=== PATIENT | male | born 1975 | race Two or more races ===

== ENCOUNTER 2017-05-07 10:06 | Inpatient (IN) | payer BC, MEDICAID ==
--- NOTE | 2017-05-07 10:54 | EDM.PDOC ---
ED HPI GENERAL MEDICAL PROBLEM - General Chief Complaint: Chest Pain Stated Complaint: CHEST PAIN Time Seen by Provider: 05/07/17 10:10 Source of Information: Reports: Patient History Limitations: Reports: No Limitations - History of Present Illness INITIAL COMMENTS - FREE TEXT/NARRATIVE: c/o CP x 2w has been using THC and meth, has h/o CHF and MIs in past L upper chest, dull, minimal no change with deep breath or ambulation no f/c/d, no n/v, no sob/[place] pt states he was dx with HF 5-6y ago in [place], has not seen a physician since then, takes an ASA daily as his only med From [facility], 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[employer], 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 working 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, lives alone, has a 16 yo son living with his aunt and uncle in [facility] Treatments CAR 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: Reports: Oxygen Chest Pain Score (Numeric/FACES): 2 - Related Data Allergies Allergy/AdvReac Type Severity Reaction Status Date / Time No Known Allergies Allergy Verified 05/07/17 10:36 Past Medical History HEENT History: Reports: Other (See Below) Other HEENT History: glasses Cardiovascular History: Reports: Heart Failure, [place] Respiratory History: Reports: SOB Gastrointestinal History: Reports: GERD, Other (See Below) Other Gastrointestinal History: hernia when he was little Dermatologic History: Reports: Other (See Below) Other Dermatologic History: pinpoint rash currently - Infectious Disease History Infectious Disease History: Reports: Chicken Pox - Past Surgical History HEENT Surgical History: Reports: None Cardiovascular Surgical History: Reports: None Respiratory Surgical History: Reports: None GI Surgical History: Reports: None Dermatological Surgical History: Reports: None Social & Family History - Family History Family Medical History: Noncontributory - Tobacco Use Smoking Status *Q: Current Every Day Smoker Years of Tobacco use: 30 Packs/Tins Daily: 1 Used Tobacco, but Quit: No Second Hand Smoke Exposure: No - Caffeine Use Caffeine Use: Reports: Coffee, Soda - Recreational Drug Use Recreational Drug Use: Yes Drug Use in Last 12 Months: Yes Recreational Drug Type: Reports: Marijuana/Hashish, Methamphetamine Recreational Drug Use Frequency: Daily ED ROS GENERAL - Review of Systems Review Of Systems: See Below Constitutional: Reports: No Symptoms HEENT: Reports: No Symptoms Respiratory: Reports: No Symptoms Cardiovascular: Reports: Chest Pain. Denies: Dyspnea on Exertion Endocrine: Reports: No Symptoms GI/Abdominal: Reports: No Symptoms : Reports: No Symptoms Musculoskeletal: Reports: No Symptoms Skin: Reports: No Symptoms Neurological: Reports: No Symptoms Psychiatric: Reports: No Symptoms Hematologic/Lymphatic: Reports: No Symptoms Immunologic: Reports: No Symptoms ED EXAM, GENERAL - Physical Exam Exam: See Below Exam Limited By: No Limitations General Appearance: Alert, WD/WN, No Apparent Distress Ears: Normal External Exam Nose: Normal Inspection, Normal Mucosa, No Blood Throat/Mouth: Normal Inspection, Normal Lips, Normal Teeth, Normal Voice, No Airway Compromise Head: Atraumatic, Normocephalic Neck: Normal Inspection, Supple, Non-Tender, Full Range of Motion. No: Lymphadenopathy (R), Lymphadenopathy (L) Respiratory/Chest: No Respiratory Distress, Lungs Clear, Normal Breath Sounds, No Accessory Muscle Use, Chest Non-Tender Cardiovascular: Regular Rate, Rhythm, No Edema, No Gallop, No JVD, No Rub, Other (2/6 ZARA at LSB) GI/Abdominal: Soft, Non-Tender, No Distention Back Exam: Normal Inspection, Full Range of Motion, NT Extremities: Normal Inspection, Normal Range of Motion, Non-Tender, No Pedal Edema Neurological: Alert, Oriented, CN II-XII Intact, Normal Cognition, No Motor/ Sensory Deficits Psychiatric: Normal Affect, Normal Mood Skin Exam: Warm, Dry, Intact, Normal Color, No Rash Lymphatic: No Adenopathy Course - Vital Signs Last Recorded V/S: Last Vital Signs Temp 36.1 C 05/07/17 12:20 Pulse 93 05/07/17 13:26 Resp 27 H 05/07/17 13:26 BP 132/89 05/07/17 13:26 Pulse Ox 100 05/07/17 13:26 - Orders/Labs/Meds Orders: Active Orders 24 hr Category Date Time Status Ang Chest [CT] Stat Exams 05/07/17 12:34 Taken Chest 1V Frontal [CR] Stat Exams 05/07/17 12:05 Taken EKG 12 Lead [EK] Routine Ther 05/07/17 10:39 Ordered Labs: Laboratory Tests 05/07/17 05/07/17 05/07/17 Range/Units 10:53 10:53 10:53 WBC 9.4 (4.5-12.0) X10-3/uL RBC 5.30 (4.30-5.75) x10(6)uL Hgb 14.8 (11.5-15.5) g/dL Hct 45.7 (30.0-51.3) % MCV 86.2 (80-96) fL MCH 28.0 (27.7-33.6) pg MCHC 32.4 (32.2-35.4) g/dL RDW 16.0 H (11.5-15.5) % Plt Count 258 (125-369) X10(3)uL MPV 9.9 (7.4-10.4) fL Neut % (Auto) 62.8 (46-82) % Lymph % (Auto) 25.7 (13-37) % [place] % (Auto) 8.8 (4-12) % Eos % (Auto) 2 (1.0-5.0) % Baso % (Auto) 1 (0-2) % Neut # (Auto) 6.0 (1.6-8.3) # Lymph # (Auto) 2.4 (0.6-5.0) # [place] # (Auto) 0.8 (0.0-1.3) # Eos # (Auto) 0.1 (0.0-0.8) # Baso # (Auto) 0.1 (0.0-0.2) # PT 15.7 H (8.7-11.1) INR 1.54 H (0.89-1.13) D-Dimer, Quantitative 1750 H (100-400) ng/mL Sodium (135-145) mmol/L Potassium (3.5-5.3) mmol/L Chloride (100-110) mmol/L Carbon Dioxide (21-32) mmol/L BUN (7-18) mg/dL Creatinine (0.70-1.30) mg/dL Est Cr Clr Drug Dosing mL/min Estimated GFR (MDRD) (>60) BUN/Creatinine Ratio (9-20) Glucose (80-116) mg/dL Calcium (8.6-10.2) mg/dL Total Bilirubin (0.1-1.3) mg/dL AST (5-25) IU/L ALT (12-36) U/L Alkaline Phosphatase (56-112) IU/L Troponin I (<0.017-0.056) ng/mL C-Reactive Protein (0.5-0.9) mg/dL NT-Pro-B Natriuret Pep (<=125) pg/mL Total Protein (6.0-8.0) g/dL Albumin (3.5-5.2) g/dL Globulin g/dL Albumin/Globulin Ratio 05/07/17 05/07/17 Range/Units 10:53 10:53 WBC (4.5-12.0) X10-3/uL RBC (4.30-5.75) x10(6)uL Hgb (11.5-15.5) g/dL Hct (30.0-51.3) % MCV (80-96) fL MCH (27.7-33.6) pg MCHC (32.2-35.4) g/dL RDW (11.5-15.5) % Plt Count (125-369) X10(3)uL MPV (7.4-10.4) fL Neut % (Auto) (46-82) % Lymph % (Auto) (13-37) % [place] % (Auto) (4-12) % Eos % (Auto) (1.0-5.0) % Baso % (Auto) (0-2) % Neut # (Auto) (1.6-8.3) # Lymph # (Auto) (0.6-5.0) # [place] # (Auto) (0.0-1.3) # Eos # (Auto) (0.0-0.8) # Baso # (Auto) (0.0-0.2) # PT (8.7-11.1) INR (0.89-1.13) D-Dimer, Quantitative (100-400) ng/mL Sodium 140 (135-145) mmol/L Potassium 4.3 (3.5-5.3) mmol/L Chloride 104 (100-110) mmol/L Carbon Dioxide 23 (21-32) mmol/L BUN 20 H (7-18) mg/dL Creatinine 1.4 H (0.70-1.30) mg/dL Est Cr Clr Drug Dosing 73.21 mL/min Estimated GFR (MDRD) 56 L (>60) BUN/Creatinine Ratio 14.3 (9-20) Glucose 127 H (80-116) mg/dL Calcium 8.4 L (8.6-10.2) mg/dL Total Bilirubin 1.6 H (0.1-1.3) mg/dL AST 59 H (5-25) IU/L ALT 146 H (12-36) U/L Alkaline Phosphatase 94 (56-112) IU/L Troponin I 0.035 (<0.017-0.056) ng/mL C-Reactive Protein 1.3 H (0.5-0.9) mg/dL NT-Pro-B Natriuret Pep 3744 H* (<=125) pg/mL Total Protein 6.8 (6.0-8.0) g/dL Albumin 3.2 L (3.5-5.2) g/dL Globulin 3.6 g/dL Albumin/Globulin Ratio 0.9 Meds: Medications Discontinued Medications Generic Name Dose Route Start Last Admin Trade Name Freq PRN Reason Stop Dose Admin Aspirin 324 mg 05/07/17 12:36 05/07/17 12:45 Aspirin PO 05/07/17 12:37 324 mg ONETIME ONE Administration Iopamidol 100 ml 05/07/17 12:50 05/07/17 13:29 Isovue-370 (76%) IV 05/07/17 12:51 100 ml ONETIME ONE Administration Nitroglycerin 0.4 mg 05/07/17 12:04 05/07/17 12:18 Nitrostat SL 05/07/17 12:05 0.4 mg ONETIME ONE Administration Nitroglycerin 1 gm 05/07/17 12:04 05/07/17 12:10 Nitro-Bid 2% TOP 05/07/17 12:05 1 gm ONETIME ONE Administration - Re-Assessments/Exams Free Text/Narrative Re-Assessment/Exam: 05/07/17 11:58 EKG with PRWP, LAD -19, NSST changes, no acute ischemia t bili 1.6, AST/ALT 59/146, INR 1.54 DDimer 1750 BNP 3744 05/07/17 12:08 pt with inc'd sob, sitting up in bed, diaphoretic, lungs remain clear, no wheeze , slight hollow upper BS with good AE will give NTG SL 0.4 mg and 1" topical, pCxR ordered Free Text/Narrative Re-Assessment/Exam: 05/07/17 14:23 chest CTA shows PEs, pt accepted in admission by Dr Kelley Major Departure - Departure Time of Disposition: 14:24 Disposition: Admitted As Inpatient 66 Reason for Transfer *Q: Other Condition: Good Clinical Impression: Pulmonary embolism, Heart failure, Liver failure, Renal failure, Marijuana abuse, Methamphetamine abuse - My Orders Last 24 Hours: My Active Orders 05/07/17 10:39 EKG 12 Lead [EK] Routine 05/07/17 12:05 Chest 1V Frontal [CR] Stat 05/07/17 12:34 Ang Chest [CT] Stat - Assessment/Plan Last 24 Hours: My Active Orders 05/07/17 10:39 EKG 12 Lead [EK] Routine 05/07/17 12:05 Chest 1V Frontal [CR] Stat 05/07/17 12:34 Ang Chest [CT] Stat
[2017-05-07] MEDS ORDERED: Nitroglycerin 0.4 MG Tab.SL SL ONE (12:04)
[2017-05-07] MEDS ORDERED: Nitroglycerin 2% Oint 1 GM UD Packet TOP ONE (12:04)
[2017-05-07] MEDS ORDERED: Aspirin 81 MG Tab.Chew PO ONE (12:36)
[2017-05-07] MEDS ORDERED: Iopamidol 755 Mg/ML 100 ML Bottle IV ONE (12:50)
[2017-05-07] MEDS ORDERED: Acetaminophen 325 MG Tab PO PRN (14:18)
[2017-05-07] MEDS ORDERED: Promethazine 25 MG Tab PO PRN (14:18)
[2017-05-07] MEDS ORDERED: Temazepam 7.5 MG Cap PO PRN (14:18)
[2017-05-07] MEDS: Lactated Ringers 1,000 ML IV SCH (14:51)
[2017-05-07] MEDS: Enoxaparin 100 MG/1 ML Syringe SUBCUT SCH (14:53)
--- NOTE | 2017-05-07 14:59 | CR ---
INDICATION: Chest pain. CHEST: An AP portable upright view of the chest 05/07/2017 - no comparisons. The heart is enlarged. The aorta is slightly tortuous. Overlying EKG leads are noted. An active infiltrate or effusion was not identified. IMPRESSION: 1. No acute process. 2. ASHD with cardiomegaly. MTDD
--- NOTE | 2017-05-07 15:12 | CT ---
INDICATION: Short of breath, increased D-dimer, question PE. COMPUTERIZED TOMOGRAPHY ANGIOGRAPHY OF THE CHEST FOR PULMONARY ARTERIES: Spiral 1.25-mm axial images were obtained through the chest with 85 mL Isovue- 370 at 3 mL per second, and then for a second attempt at visualizing the pulmonary arteries, 75 mL were injected at 3 mL per second additionally. A second run was therefore obtained. Sagittal and coronal reconstructions were obtained for both. Comparison chest x-ray is noted. No comparison CTs are available. This examination was obtained 05/07/2017. Total Exam DLP = 912.33 plus 825.08 mGy-cm for the two runs. There is suggestion of small pulmonary emboli in second order and third order pulmonary arteries, extending into the right lower lobe. These apparent emboli do not appear to be obstructive - relatively minimal in size. There is noted a moderate sized pleural effusion on the right, which may be related to the pulmonary embolus. This should be correlated clinically. No definite active infiltrate was identified. There is, however, question of slightly prominent interstitium which could be present with interstitial lung edema and should be correlated clinically in this patient with prominent heart - slightly enlarged heart. Multiple small gallstones are present. If cholecystitis is suspected clinically , gallbladder ultrasound may be helpful for further evaluation. No mediastinal masses were identified. Mediastinal lymphadenopathy appears to be present to a mild degree, which is nonspecific. Aortic calcifications are noted to a minimal degree. There is suggestion of some minimal areas of subsegmental atelectasis in the upper lobes bilaterally. No gross consolidating pneumonia was identified. IMPRESSION: 1. Suggestion of minimal pulmonary emboli of the arteries going to the right lower lobe. 2. Moderately large right pleural effusion, etiology indeterminate - question on the basis of #1. 3. Cholelithiasis - gallbladder ultrasound may be helpful if acute cholecystitis is suspected clinically. 4. ASHD with question of the possibility of CHF with minimal interstitial lung edema. 5. Suggestion of some minimal subsegmental atelectasis in the upper lobes bilaterally. MTDD
--- NOTE | 2017-05-07 15:59 | PCM.HP ---
H&P History of Present Illness - General Date of Service: 05/07/17 Admit Problem/Dx: Admission Diagnosis/Problem Admission Diagnosis/Problem PE, Pulmonary embolism Source of Information: Patient, Old Records, Provider - History of Present Illness Initial Comments - Free Text/Narative: Patient is a 42-year-old female with a history of some type of cardiac abnormality for which he was advised to have open heart surgery, possibly valve replacement. He has a known history of congestive heart failure, diagnosed 5-6 years ago, no follow-up since. Has a history of drug abuse with methamphetamines but is currently clean and sober. 2 weeks ago he started to develop worsening shortness of breath. He normally cannot walk more than a block or 2 without having to stop and catch his breath, but it was getting worse and he felt pain across the anterior chest as well. Little bit of upper abdominal discomfort as well. He's had episodes like this in the past but finally decided since he has insurance he would come in and get evaluated. He was seen in the emergency room with a slightly elevated troponin, although still in normal limits, and CT angiogram showed evidence of PE. I was asked to admit the patient for further evaluation and treatment. Some diaphoresis, no dizziness, no nausea or vomiting, no diarrhea. No fevers or chills, no night sweats. No unexplained weight loss. Past medical history: The patient does not doctor. 5-6 years ago he was in [place] and was using methamphetamine at the time. He ended up in the hospital they told him he had a slight heart attack, severe congestive heart failure secondary to bad valve, and recommended open heart surgery. He declined and came back to [place]. He has not been into the doctor since. Social history: The patient is a nonsmoker but does smoke marijuana. He uses it about once a week. Denies ETOH. Denies IVDU. 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 Was about 2 months ago. He lives alone. He has an apartment in [place]. Family history: The patient's mother is still living with diabetes mellitus. The patient's father is living with diabetes mellitus. The patient has one son who is in good health. This far as he knows there is been some type of heart problems in the family but "they don't talk about it" and as far she knows no one else has had open-heart surgery or bypass grafting. Chest Pain Score (Numeric/FACES): 2 - Related Data Allergies/Adverse Reactions: Allergies Allergy/AdvReac Type Severity Reaction Status Date / Time No Known Allergies Allergy Verified 05/07/17 10:36 Past Medical History HEENT History: Reports: Other (See Below) Other HEENT History: glasses Cardiovascular History: Reports: Heart Failure, [place] Respiratory History: Reports: SOB Gastrointestinal History: Reports: GERD, Other (See Below) Other Gastrointestinal History: hernia when he was little Dermatologic History: Reports: Other (See Below) Other Dermatologic History: pinpoint rash currently - Infectious Disease History Infectious Disease History: Reports: Chicken Pox - Past Surgical History HEENT Surgical History: Reports: None Cardiovascular Surgical History: Reports: None Respiratory Surgical History: Reports: None GI Surgical History: Reports: None Dermatological Surgical History: Reports: None Social & Family History - Family History Family Medical History: Noncontributory - Tobacco Use Smoking Status *Q: Current Every Day Smoker Years of Tobacco use: 30 Packs/Tins Daily: 1 Used Tobacco, but Quit: No Second Hand Smoke Exposure: No - Caffeine Use Caffeine Use: Reports: Coffee, Soda - Recreational Drug Use Recreational Drug Use: Yes Drug Use in Last 12 Months: Yes Recreational Drug Type: Reports: Marijuana/Hashish, Methamphetamine Recreational Drug Use Frequency: Daily H&P Review of Systems - Review of Systems: Review Of Systems: See Below Free Text/Narrative: Currently pain free. General: Reports: No Symptoms HEENT: Reports: No Symptoms Pulmonary: Reports: Shortness of Breath, Pleuritic Chest Pain, Cough Cardiovascular: Reports: Chest Pain, Dyspnea on Exertion Gastrointestinal: Reports: Abdominal Pain Genitourinary: Reports: No Symptoms Musculoskeletal: Reports: No Symptoms Skin: Reports: No Symptoms Psychiatric: Reports: No Symptoms Neurological: Reports: No Symptoms Hematologic/Lymphatic: Reports: No Symptoms Immunologic: Reports: No Symptoms Exam - Exam Exam: See Below - Vital Signs Vital Signs: Last Vital Signs Temp 36.1 C 05/07/17 12:20 Pulse 93 05/07/17 13:26 Resp 27 H 05/07/17 13:26 BP 132/89 05/07/17 13:26 Pulse Ox 100 05/07/17 13:26 Weight: 94.529 kg - Exam Quality Assessment: Supplemental Oxygen General: Alert, Oriented, Cooperative HEENT: PERRLA, Mucosa Moist & [place], Posterior Pharynx Clear, TMs Clear Neck: Supple, Trachea Midline Lungs: Crackles (fine crackles bilaterally at the bases.) Cardiovascular: Regular Rate, Regular Rhythm, Systolic Murmur (Systolic ejection murmur 3 out of 6.) GI/Abdominal Exam: Normal Bowel Sounds, Soft, Non-Tender, No Distention, No Mass Back Exam: Normal Inspection (He does have a rash, see below.), Full Range of Motion Extremities: Normal Inspection, Normal Range of Motion (Small round scars scattered across the upper and lower extremities.), No Pedal Edema Skin: Rash (On the back and the right lateral side the patient has a slightly raised erythematous sandpaper rash. He says this has been present for weeks. Not itchy.) Psychiatric: Alert, Normal Affect, Normal Mood, Anxious - Patient Data Lab Results Last 24 hrs: Laboratory Results - last 24 hr 05/07/17 05/07/17 Range/Units 12:51 12:51 Urine Color Yellow (YELLOW) Urine Appearance Clear (CLEAR) Urine pH 5.0 (5.0-6.5) Ur Specific [place] 1.020 (1.010-1.025) Urine Protein Negative (NEGATIVE) mg/dL Urine Glucose (UA) Normal (NEGATIVE) mg/dL Urine Ketones Negative (NEGATIVE) mg/dL Urine Occult Blood Negative (NEGATIVE) Urine Nitrite Negative (NEGATIVE) Urine Bilirubin Small H (NEGATIVE) Urine Urobilinogen 1 H (NEGATIVE) mg/dL Ur Leukocyte Esterase Negative (NEGATIVE) Urine RBC 0-5 (0) Urine WBC Not seen (0) Urine Bacteria Rare H (NS) Urine Opiates Screen Negative (NEGATIVE) Ur Oxycodone Screen Negative (NEGATIVE) Ur Propoxyphene Screen Negative (NEGATIVE) Ur Barbituates Screen Negative (NEGATIVE) Ur Tricyclics Screen Negative (NEGATIVE) Ur Phencyclidine Scrn Negative (NEGATIVE) Ur Amphetamine Screen Negative (NEGATIVE) Urine MDMA Screen Negative (NEGATIVE) U Benzodiazepines Scrn Negative (NEGATIVE) U Cocaine Metab Screen Negative (NEGATIVE) U Marijuana (THC) Screen Positive H (NEGATIVE) Result Diagrams: 05/07/17 10:53 05/07/17 10:53 Imaging Impressions Last 24 hrs: Chest x-ray showed cardiomegaly otherwise negative. CTA which required 2 runs of dye because of poor timing on the first attempt, showed small pulmonary emboli in the second and third order pulmonary arteries extending into the right lower lobe. There is a moderate right sided pleural effusion question of slightly prominent interstitium, multiple small gallstones present, mediastinal lymphadenopathy to a mild degree. EKG INTERPRETATION EKG Date: 05/07/17 (EKG shows a sinus tachycardia, Q waves in 2,3 and aVF with mild intraventricular conduction delay. The patient has no ST depression or elevation, no T-wave inversion. No prior for comparison.) *Q Meaningful Use (ADM) - VTE *Q VTE Criteria *Q: - VTE Risk Assess *Q Other Thrombophilia Type: current PE - Stroke *Q Stroke Criteria *Q: - AMI *Q AMI Criteria *Q: - Problem List (1) Pulmonary embolism SNOMED Code(s): 02380690 ICD Code: I26.99 - OTHER PULMONARY EMBOLISM WITHOUT ACUTE COR PULMONALE Status: Acute Current Visit: Yes Problem Details: Patient will be admitted to the ICU. He'll be fully anticoagulated. No provoked or inciting factors as the patient has had no long car trips, no periods of bed rest, no trauma. Given the patient's known valvular disease and history of drug use, septic emboli are in the differential but the patient denies any IV drug use and notes only methamphetamine abuse. He has no symptoms of sepsis or infectious endocarditis. However we'll have a low threshold for transfer. (2) Congestive heart failure (CHF) SNOMED Code(s): 83609831 ICD Code: I50.9 - HEART FAILURE, UNSPECIFIED Status: Acute Current Visit : Yes Problem Details: Unknown if systolic or diastolic, question of valve failure. We'll get echocardiogram tomorrow to further assess function and valves. (3) History of drug abuse SNOMED Code(s): 845181677 ICD Code: Z87.898 - PERSONAL HISTORY OF OTHER SPECIFIED CONDITIONS Status: Acute Current Visit: Yes Problem Details: Patient denies any active methamphetamine use. Last use about 2 months ago. He does use marijuana on a weekly basis. Denies alcohol use. Monitor for signs of withdrawal. At discharge , outpatient assistance in maintaining sobriety should be offered. (4) CKD (chronic kidney disease) SNOMED Code(s): 085352015 ICD Code: N18.9 - CHRONIC KIDNEY DISEASE, UNSPECIFIED Status: Acute Current Visit: Yes Problem Details: Unknown if acute or chronic, I'm concerned about the dye load that the patient has received. We'll do gentle fluids at 75 mL an hour normal saline for 2 L over the next 24 hours. If he begins to develop signs of fluid overload, will diurese. (5) Marijuana abuse SNOMED Code(s): 75059941 ICD Code: F12.10 - CANNABIS ABUSE, UNCOMPLICATED Status: Acute Current Visit: Yes Problem Details: Current, advised cessation. (6) Elevated troponin SNOMED Code(s): 923544455, 972721410 ICD Code: R74.8 - ABNORMAL LEVELS OF OTHER SERUM ENZYMES Status: Acute Current Visit: Yes Problem Details: With elevated creatinine and PE, this could potentially be just a troponin leak but with the patient's history of possible CT will follow and if it increases significantly, we'll transfer the patient for further evaluation with cardiology. (7) Elevated INR SNOMED Code(s): 896825121 ICD Code: R79.1 - ABNORMAL COAGULATION PROFILE Status: Acute Current Visit: Yes Problem Details: An elevated INR in a patient with no history of anticoagulation is suggestive of liver failure. We'll monitor. Given patient's full anticoagulation, at this point he is at increased risk for bleeding so monitor closely for signs of blood loss. With elevated LFTs and bili, could be passive congestion but will get US of abdomen and check hepatitis labs, as well as HIV. Problem List Initiated/Reviewed/Updated: Yes Orders Last 24hrs: Active Orders 24 hr Category Date Time Status Patient Status [ADT] Routine ADT 05/07/17 14:18 Active Bedrest Bedside Commode [RC] ASDIRECTED Care 05/07/17 14:18 Active Cardiac Monitoring [RC] CONTINUOUS Care 05/07/17 14:19 Active Height and Weight [RC] DAILY Care 05/07/17 14:18 Active Intake and Output [RC] QSHIFT Care 05/07/17 14:19 Active Notify Provider Vital Signs [RC] ASDIRECTED Care 05/07/17 14:20 Active Oxygen Therapy [RC] PRN Care 05/07/17 14:18 Active Pulse Oximetry [RC] CONTINUOUS Care 05/07/17 14:20 Active Up to Chair [RC] ASDIRECTED Care 05/07/17 14:18 Active VTE/DVT Education [RC] Per Unit Routine Care 05/07/17 14:18 Active Vital Signs [RC] Q4H Care 05/07/17 14:18 Active Consult to Insurance Account Representative [CONS] Routine Cons 05/07/17 14:18 Active Clear Liquid Diet [DIET] Diet 05/07/17 Breakfast Active Echo Comp wo Cont [US] Routine Exams 05/07/17 14:27 Ordered CBC WITH AUTO DIFF [HEME] AM Lab 05/08/17 05:11 Ordered COMPREHENSIVE METABOLIC PN,CMP [CHEM] AM Lab 05/08/17 05:11 Ordered TROPONIN I [CHEM] Routine Lab 05/07/17 18:00 Ordered Acetaminophen [Tylenol] Med 05/07/17 14:18 Active 650 mg PO Q4H PRN Enoxaparin [Lovenox] Med 05/07/17 14:30 Active 100 mg SUBCUT Q12H Lactated Ringers [Ringers, Lactated] 1,000 ml Med 05/07/17 14:30 Active IV ASDIRECTED Promethazine [Phenergan] Med 05/07/17 14:18 Active 25 mg PO Q6H PRN Temazepam [Restoril] Med 05/07/17 14:18 Active 7.5 mg PO BEDTIME PRN Resuscitation Status Routine Resus Stat 05/07/17 14:18 Ordered Medication Orders Acetaminophen (Tylenol) 650 mg PO Q4H PRN PRN Reason: Pain (Mild 1-3)/fever Enoxaparin Sodium (Lovenox) 100 mg SUBCUT Q12H [facility] Last Admin: 05/07/17 14:53 Dose: 100 mg Lactated Ringer's (Ringers, Lactated) 1,000 mls @ 75 mls/hr IV ASDIRECTED MEAGHAN Stop: 05/08/17 14:31 Last Admin: 05/07/17 14:51 Dose: 75 mls/hr Promethazine HCl (Phenergan) 25 mg PO Q6H PRN PRN Reason: nausea, able to take PO Temazepam (Restoril) 7.5 mg PO BEDTIME PRN PRN Reason: Sleep Assessment/Plan Comment:: CODE STATUS discussed with the patient. He is a full code.
[2017-05-07] MEDS ORDERED: Furosemide 40 MG/4 ML VIAL IVPUSH ONE (22:49)
[2017-05-08] MEDS: Enoxaparin 100 MG/1 ML Syringe SUBCUT SCH (02:01)
[2017-05-08] MEDS: Lactated Ringers 1,000 ML IV SCH (04:09)
--- NOTE | 2017-05-08 10:37 | US ---
INDICATION: Elevated liver enzymes. ULTRASOUND ABDOMEN COMPLETE: Multiple ultrasonic images were obtained 2017 - no comparisons were available. The IVC was phasic. The abdominal aorta was normal in caliber, measuring a maximum of 1.5 cm distally. The gallbladder was enlarged, measuring 10.3 x 3.3 x 3.7 cm, with multiple calculi of relatively small size present within it. There was a negative ultrasonic Contreras sign and no pericholecystic fluid was seen. The wall did not appear to be grossly thickened. Findings should be correlated clinically as to the possibility of acute cholecystitis. Hepatobiliary imaging may be helpful in that regard with nuclear medicine. The common bile duct appeared normal in caliber at approximately 2.5 mm. The liver had a normal appearance. The pancreas was not ideally visualized, but appeared grossly normal. The spleen appeared normal, measuring 8.5 x 4.9 cm. The right kidney appeared normal, measuring 11.5 x 4 x 5.9 cm. The left kidney appeared normal, measuring 10.3 x 5.6 x 5.4 cm. No organomegaly or mass lesions or free fluid collections were otherwise identified. IMPRESSION: Slightly prominent size of the gallbladder may be on the basis of NPO status, but should be correlated clinically. There are multiple calculi in the gallbladder, but no other findings to suggest acute cholecystitis. MTDD
--- NOTE | 2017-05-08 11:55 | PCM.DCSUM1 ---
Discharge Summary - Hospital Course Free Text/Narrative:: Date of Admission: 05/07/17 Date of Discharge: 05/08/17 Admission Diagnosis: #1 PE #2 increased Creatinine 1.4, unclear etiology #3 increased LFTs, T bili and INR unclear etiology #4 Hx of methamphetamine abuse, current use of marijuana. #5 mild troponin elevation. Discharge Diagnosis: #1 Severe Systolic congestive heart failure due to mitral valve insufficiency with EF 12%, severe pulmonary HTN #2 PE #3 improved creatinine 1.2 #4 severe sleep apnea #5 increased LFTs, T bili and INR with negative liver US, hepatitis panel and HIV pending #6 Hx of methamphetamine abuse, current use of marijuana. #7 mild troponin elevation, on repeat stable. HPI: The patient is a 42-year-old male who presented the day of admission with 2 weeks history of intermittent shortness of breath, chest discomfort, and pedal edema. He was found to have PE, small and distal branches, on CTA as well as a mildly increased creatinine to 1.4, increased total bili at 1.8, increased INR 1.54, and a significant heart murmur. Patient had previous hospitalization in [place], [place] about 5 years ago at which he was told he had some CHF, valve disease and would need a valve replacement. He never followed up on this. He has had no symptoms of infectious endocarditis, no fevers, no chills, no sweats , denied any IVDU. Vital signs were stable with the exception of mild hypoxia which resolved with supplemental oxygen, so patient was admitted to the ICU and started on Lovenox for full anticoagulation and further evaluation was ordered. Hospital Course: Was given gentle diuresis with IVF for renal protection after receiving double contrast load with CTA. Echo in am showed severe mitral valve insufficiency, EF 12%, severe pulmonary HTN, severe LVH. After receiving the results of the echocardiogram, I contacted [facility] and spoke with Dr. Arguello, hospitalist, who contacted Dr. Calvo from cardiology and they agreed to accept the patient in transfer. - Discharge Data Discharge Date: 05/08/17 Discharge Disposition: DC/Tfer to Acute Hospital 02 Condition: Good - Discharge Diagnosis/Problem(s) (1) Systolic congestive heart failure due to valvular disease SNOMED Code(s): 204230541 ICD Code: I50.20 - UNSPECIFIED SYSTOLIC (CONGESTIVE) HEART FAILURE; I38 - ENDOCARDITIS, VALVE UNSPECIFIED Status: Acute Current Visit: Yes Problem Details: Echocardiogram this morning showed an LV over 60, 12% ejection fraction , severe mitral regurgitation, severe pulmonary hypertension on preliminary read by the [place] senior engineering technician. Recommended transfer to higher level of care for further evaluation, tx of cardiac issues complicated by PE. (2) Pulmonary embolism SNOMED Code(s): 54380656 ICD Code: I26.99 - OTHER PULMONARY EMBOLISM WITHOUT ACUTE COR PULMONALE Status: Acute Current Visit: Yes Problem Details: Currently on full dose Lovenox. Due to cardiac issues, will be transferred to higher level of care. (3) History of drug abuse SNOMED Code(s): 794020388 ICD Code: Z87.898 - PERSONAL HISTORY OF OTHER SPECIFIED CONDITIONS Status: Acute Current Visit: Yes Problem Details: Patient denies any active methamphetamine use. Last use about 2 months ago. He does use marijuana on a weekly basis. Denies alcohol use. No sign of withdrawal. (4) CKD (chronic kidney disease) SNOMED Code(s): 049006779 ICD Code: N18.9 - CHRONIC KIDNEY DISEASE, UNSPECIFIED Status: Acute Current Visit: Yes Problem Details: Unknown if acute or chronic, patient responded well to gentle fluids with 1 dose IV Lasix for diuresis. Creatinine now 1.2. Renal ultrasound negative. (5) Marijuana abuse SNOMED Code(s): 93279745 ICD Code: F12.10 - CANNABIS ABUSE, UNCOMPLICATED Status: Acute Current Visit: Yes Problem Details: Current, advised cessation. (6) Elevated troponin SNOMED Code(s): 760595611, 200305604 ICD Code: R74.8 - ABNORMAL LEVELS OF OTHER SERUM ENZYMES Status: Acute Current Visit: Yes Problem Details: Troponin remained flat overnight. Given echo results above, transfer to higher level care. (7) Elevated INR SNOMED Code(s): 868658543 ICD Code: R79.1 - ABNORMAL COAGULATION PROFILE Status: Acute Current Visit: Yes Problem Details: Liver ultrasound was negative, showed only gallstones with no obstruction. Hepatitis labs and HIV still pending. T Bili and LFTs elevated. - Patient Summary/Data Consults: Consultations 05/07/17 14:18 Consult to Form Coverer [CONS] Routine Comment: Physician Instructions: unemployed, assess social situation and needs - Patient Instructions Diet: NPO - Discharge Plan Home Medications: Home Meds . [No Known Home Meds] 0 dose ASDIRECTED 05/08/17 [History] Patient Handouts: Enoxaparin injection, Pulmonary Embolism, Venous Thromboembolism, Heart Failure, [id number], How and Where to Give Subcutaneous Enoxaparin Injections, Deep Vein Thrombosis, Steps to Quit Smoking Forms: ED Department Discharge Referrals: PCP,None [Primary Care Provider] - - Discharge Summary/Plan Comment DC Time >30 min.: Yes Discharge Summary/Plan Comment: Code status discussed at length on admission and patient is a FULL CODE. - General Info Date of Service: 05/08/17 Subjective Update: He denies chest pain, shortness of breath is much improved although he still feels dyspneic, no nausea, vomiting, abdominal pain, diarrhea. - Patient Data Vitals - Most Recent: Last Vital Signs Temp 36.9 C 05/08/17 08:00 Pulse 95 05/08/17 08:00 Resp 20 05/08/17 08:00 BP 118/82 05/08/17 08:00 Pulse Ox 99 05/08/17 08:00 Weight - Most Recent: 92.669 kg I&O - Last 24 hours: Intake & Output 05/07/17 05/08/17 05/08/17 22:59 06:59 14:59 Intake Total 760 684 Output Total 600 3175 Balance 160 -2491 Lab Results - Last 24 hrs: Laboratory Results - last 24 hr 05/07/17 05/07/17 05/07/17 Range/Units 12:51 12:51 18:20 WBC (4.5-12.0) X10-3/uL RBC (4.30-5.75) x10(6)uL Hgb (11.5-15.5) g/dL Hct (30.0-51.3) % MCV (80-96) fL MCH (27.7-33.6) pg MCHC (32.2-35.4) g/dL RDW (11.5-15.5) % Plt Count (125-369) X10(3)uL MPV (7.4-10.4) fL Neut % (Auto) (46-82) % Lymph % (Auto) (13-37) % [place] % (Auto) (4-12) % Eos % (Auto) (1.0-5.0) % Baso % (Auto) (0-2) % Neut # (Auto) (1.6-8.3) # Lymph # (Auto) (0.6-5.0) # [place] # (Auto) (0.0-1.3) # Eos # (Auto) (0.0-0.8) # Baso # (Auto) (0.0-0.2) # Sodium (135-145) mmol/L Potassium (3.5-5.3) mmol/L Chloride (100-110) mmol/L Carbon Dioxide (21-32) mmol/L BUN (7-18) mg/dL Creatinine (0.70-1.30) mg/dL Est Cr Clr Drug Dosing mL/min Estimated GFR (MDRD) (>60) BUN/Creatinine Ratio (9-20) Glucose (80-116) mg/dL Calcium (8.6-10.2) mg/dL Total Bilirubin (0.1-1.3) mg/dL AST (5-25) IU/L ALT (12-36) U/L Alkaline Phosphatase (56-112) IU/L Troponin I 0.038 (<0.017-0.056) ng/mL Total Protein (6.0-8.0) g/dL Albumin (3.5-5.2) g/dL Globulin g/dL Albumin/Globulin Ratio Triglycerides (15-150) mg/dL Cholesterol (50-200) mg/dL LDL Cholesterol Direct (60-130) mg/dL HDL Cholesterol (40-75) mg/dL Cholesterol/HDL Ratio (0-5) Urine Color Yellow (YELLOW) Urine Appearance Clear (CLEAR) Urine pH 5.0 (5.0-6.5) Ur Specific [place] 1.020 (1.010-1.025) Urine Protein Negative (NEGATIVE) mg/dL Urine Glucose (UA) Normal (NEGATIVE) mg/dL Urine Ketones Negative (NEGATIVE) mg/dL Urine Occult Blood Negative (NEGATIVE) Urine Nitrite Negative (NEGATIVE) Urine Bilirubin Small H (NEGATIVE) Urine Urobilinogen 1 H (NEGATIVE) mg/dL Ur Leukocyte Esterase Negative (NEGATIVE) Urine RBC 0-5 (0) Urine WBC Not seen (0) Urine Bacteria Rare H (NS) Urine Opiates Screen Negative (NEGATIVE) Ur Oxycodone Screen Negative (NEGATIVE) Ur Propoxyphene Screen Negative (NEGATIVE) Ur Barbituates Screen Negative (NEGATIVE) Ur Tricyclics Screen Negative (NEGATIVE) Ur Phencyclidine Scrn Negative (NEGATIVE) Ur Amphetamine Screen Negative (NEGATIVE) Urine MDMA Screen Negative (NEGATIVE) U Benzodiazepines Scrn Negative (NEGATIVE) U Cocaine Metab Screen Negative (NEGATIVE) U Marijuana (THC) Screen Positive H (NEGATIVE) 05/08/17 05/08/17 05/08/17 Range/Units 06:45 06:45 06:45 WBC 8.1 (4.5-12.0) X10-3/uL RBC 5.12 (4.30-5.75) x10(6)uL Hgb 14.6 (11.5-15.5) g/dL Hct 44.0 (30.0-51.3) % MCV 85.9 (80-96) fL MCH 28.6 (27.7-33.6) pg MCHC 33.2 (32.2-35.4) g/dL RDW 15.8 H (11.5-15.5) % Plt Count 247 (125-369) X10(3)uL MPV 10.3 (7.4-10.4) fL Neut % (Auto) 50.8 (46-82) % Lymph % (Auto) 38.1 H (13-37) % [place] % (Auto) 7.6 (4-12) % Eos % (Auto) 2 (1.0-5.0) % Baso % (Auto) 2 (0-2) % Neut # (Auto) 4.1 (1.6-8.3) # Lymph # (Auto) 3.1 (0.6-5.0) # [place] # (Auto) 0.6 (0.0-1.3) # Eos # (Auto) 0.2 (0.0-0.8) # Baso # (Auto) 0.1 (0.0-0.2) # Sodium 138 (135-145) mmol/L Potassium 4.2 (3.5-5.3) mmol/L Chloride 104 (100-110) mmol/L Carbon Dioxide 25 (21-32) mmol/L BUN 14 (7-18) mg/dL Creatinine 1.2 (0.70-1.30) mg/dL Est Cr Clr Drug Dosing 85.41 mL/min Estimated GFR (MDRD) > 60 (>60) BUN/Creatinine Ratio 11.7 (9-20) Glucose 99 (80-116) mg/dL Calcium 8.6 (8.6-10.2) mg/dL Total Bilirubin 2.8 H (0.1-1.3) mg/dL AST 65 H D (5-25) IU/L ALT 137 H (12-36) U/L Alkaline Phosphatase 83 (56-112) IU/L Troponin I (<0.017-0.056) ng/mL Total Protein 6.3 (6.0-8.0) g/dL Albumin 3.1 L (3.5-5.2) g/dL Globulin 3.2 g/dL Albumin/Globulin Ratio 1.0 Triglycerides 86 (15-150) mg/dL Cholesterol 139 (50-200) mg/dL LDL Cholesterol Direct 123 (60-130) mg/dL HDL Cholesterol 14 L (40-75) mg/dL Cholesterol/HDL Ratio 9.9 H (0-5) Urine Color (YELLOW) Urine Appearance (CLEAR) Urine pH (5.0-6.5) Ur Specific [place] (1.010-1.025) Urine Protein (NEGATIVE) mg/dL Urine Glucose (UA) (NEGATIVE) mg/dL Urine Ketones (NEGATIVE) mg/dL Urine Occult Blood (NEGATIVE) Urine Nitrite (NEGATIVE) Urine Bilirubin (NEGATIVE) Urine Urobilinogen (NEGATIVE) mg/dL Ur Leukocyte Esterase (NEGATIVE) Urine RBC (0) Urine WBC (0) Urine Bacteria (NS) Urine Opiates Screen (NEGATIVE) Ur Oxycodone Screen (NEGATIVE) Ur Propoxyphene Screen (NEGATIVE) Ur Barbituates Screen (NEGATIVE) Ur Tricyclics Screen (NEGATIVE) Ur Phencyclidine Scrn (NEGATIVE) Ur Amphetamine Screen (NEGATIVE) Urine MDMA Screen (NEGATIVE) U Benzodiazepines Scrn (NEGATIVE) U Cocaine Metab Screen (NEGATIVE) U Marijuana (THC) Screen (NEGATIVE) Med Orders - Current: Current Medications Acetaminophen (Tylenol) 650 mg PO Q4H PRN PRN Reason: Pain (Mild 1-3)/fever Enoxaparin Sodium (Lovenox) 100 mg SUBCUT Q12H MEAGHAN Last Admin: 05/08/17 02:01 Dose: 100 mg Lactated Ringer's (Ringers, Lactated) 1,000 mls @ 50 mls/hr IV ASDIRECTED MAEGHAN Stop: 05/08/17 14:31 Last Infusion: 05/08/17 10:54 Dose: 50 mls/hr Promethazine HCl (Phenergan) 25 mg PO Q6H PRN PRN Reason: nausea, able to take PO Temazepam (Restoril) 7.5 mg PO BEDTIME PRN PRN Reason: Sleep Last Admin: 05/08/17 02:08 Dose: 7.5 mg Discontinued Medications Aspirin (Aspirin) 324 mg PO ONETIME ONE Stop: 05/07/17 12:37 Last Admin: 05/07/17 12:45 Dose: 324 mg Furosemide (Lasix) 40 mg IVPUSH NOW ONE Stop: 05/07/17 22:50 Last Admin: 05/07/17 23:02 Dose: 40 mg Iopamidol (Isovue-370 (76%)) 100 ml IV ONETIME ONE Stop: 05/07/17 12:51 Last Admin: 05/07/17 13:29 Dose: 100 ml Nitroglycerin (Nitrostat) 0.4 mg SL ONETIME ONE Stop: 05/07/17 12:05 Last Admin: 05/07/17 12:18 Dose: 0.4 mg Nitroglycerin (Nitro-Bid 2%) 1 gm TOP ONETIME ONE Stop: 05/07/17 12:05 Last Admin: 05/07/17 12:10 Dose: 1 gm - Exam General: Reports: Alert, Oriented, Cooperative, No Acute Distress HEENT: Reports: Pupils Equal, Pupils Reactive Neck: Reports: Supple Lungs: Reports: Crackles (bases bilaterally) Cardiovascular: Reports: Regular Rate, Regular Rhythm, Murmurs (Loud 3/6 systolic murmur) GI/Abdominal Exam: Normal Bowel Sounds, Soft, Non-Tender, No Distention Extremities: No Pedal Edema Psy/Mental Status: Reports: Alert, Normal Affect, Normal Mood *Q Meaningful Use (DIS) - VTE *Q VTE Criteria *Q: - Stroke *Q Stroke Criteria *Q: - AMI *Q AMI Criteria *Q:
== END 2017-05-08 13:10 | DRG 194 ==
LOC: FB.ED 10:06 → FB.ICU 12:45
PROVIDERS: ADMIT Family Medicine; ATTEND Family Medicine
DX: I50.20 Unspecified systolic (congestive) heart failure (principal); I34.0 Nonrheumatic mitral (valve) insufficiency; I27.20 Pulmonary hypertension, unspecified; I26.99 Other pulmonary embolism without acute cor pulmonale; F15.11 Other stimulant abuse, in remission; F12.10 Cannabis abuse, uncomplicated; N18.9 Chronic kidney disease, unspecified; F17.210 Nicotine dependence, cigarettes, uncomplicated; I25.2 Old myocardial infarction; R74.8 Abnormal levels of other serum enzymes; R79.1 Abnormal coagulation profile; R79.89 Other specified abnormal findings of blood chemistry; R21 Rash and other nonspecific skin eruption; G47.30 Sleep apnea, unspecified
CPT/HCPCS: 36415; 71045; 71275; 76700; 80053; 80061; 80074; 80305; 81001; 83880; 84484; 85025; 85379; 85610; 86140; 87389; 93005; 93306; 99285; A9270-GY; J1650; J1940; J7120; Q9967